=== PATIENT | female | born 1940 | race Caucasian/White ===

== ENCOUNTER → 2022-07-11 09:58 | Outpatient (CLI) | payer MEDICARE, OTHER, SELFPAY ==
[2022-07-11 11:20] LABS: COVID19 -Nasal RAPID Negative (Negative)
== END ==
PROVIDERS: PCP Physician Assistant; Referring Provider Orthopaedic Surgery Orthopaedic Surgery of the Spine; Visit Provider Orthopaedic Surgery Orthopaedic Surgery of the Spine
DX: Z20.822 Contact with and (suspected) exposure to COVID-19 (principal)
CPT/HCPCS: 87635; C9803

== ENCOUNTER 2022-07-14 10:35 | Inpatient (IN) | payer MEDICARE, OTHER, SELFPAY ==
[2022-07-07 08:40] VITALS: BMI 25.4
[2022-07-14] VITALS (17 sets, daily range): BP systolic 122–220; BP diastolic 53–104; PULSE 51–92; RESP 8–21; TEMP 36.1–36.6; O2SAT 91–100; BMI 25.9
--- NOTE | 2022-07-14 11:43 | SUR.PREOP ---
Pt states no pain today. States left sided buttock pain, into left thigh. Denies numbness and tingling.
[2022-07-14] MEDS: LACTATED RINGERS 1,000 ML 42 ML IV ×2 (11:46→17:09)
--- NOTE | 2022-07-14 14:57 | PM.OP.1 ---
Operative Date/Time/Diagnoses Date of procedure: 07/13/22 Time of procedure: 14:50 Pre-op diagnosis: 1. L5-S1 facet cyst 2. L5-S1 spinal stenosis with radiculopathy
--- NOTE | 2022-07-14 14:58 | PM.PREOP ---
Pre-operative Note COVID-19 COVID-19 status: Negative Result date/Date tested (Pos, Neg/Pending): 07/13/22 Criteria for continued procedure: Expected advancement of disease process, Possibility delay results in more complex future surgery or treatment, Increased loss of function, Continuing or worsening of significant or severe pain, Deterioration of the patient's condition or overall health and Delay expected to result in less-positive ultimate med/surg outcome Interval Note History & Physical reviewed/Exam performed by Physician: Yes Changes to H&P: No
[2022-07-14] MEDS: CEFAZOLIN 2 GM/100 ML PREMIX 100 ML IV (15:47)
--- NOTE | 2022-07-14 16:25 | SUR.OPER ---
Prone on spine table, head in foam head support, padded chest and pelvic supports, gel pad at knees, lower legs supported by pillows; nipples, genitalia and toes free of pressure, arms secured on foam padded arm boards at <90 degrees abduction. Tape over blanket at thigh secured to table.
[2022-07-14] MEDS: BUPIVACAINE 0.25% (PF) 30 ML, EPINEPHrine 0.3 MG INJ (16:32)
[2022-07-14] MEDS: BUPIVACAINE LIPOSOME 266 MG/20 ML VIAL INJ (16:33)
--- NOTE | 2022-07-14 17:31 | PM.OP.1 ---
Operative Date/Time/Diagnoses Date of procedure: 07/14/22 Time of procedure: 16:00 Pre-op diagnosis: 1. L5-S1 spinal stenosis 2. L5-S1 synovial cyst 3. L5-S1 radiculopathy Post-op diagnosis: same Procedure & Clinicians Procedure: 1. L5-S1 Postero-lateral and posterior interbody fusion 2. L5-S1 interbody cage placement. 3. L5-S1 decompressive laminectomy with bilateral facetecomies 4. L5-S1 Posterior non-segmental instrumentation 5. [place] of bone marrow from iliac crest 6. Utilization of microsurgical technique and operating microscope Same procedure as scheduled: Yes Indications: Patient has been having chronic back pain and worsening lumbar radiculopathy to her left lower extremity. Patient was found have a large synovial cyst to her L5-S1 facet. Patient failed multiple conservative management with worsening pain weakness and numbness in her lower extremity. Patient has been having difficulty performing activity of daily living. After discussing risks benefits of treatment options, patient elected proceed with surgery. Surgeon: Nina Charlton [employer] Foreign Language Teacher: Alison Armando Click Yes if Unassisted: No Anesthesia Type: General Operative Notes Closure Type: primary Specimen(s): none sent Prosthetic devices, grafts, tissues, transplants, or devices: Globus revolve screws, Rise cage Estimated Blood Loss (mL): 50 Blood products transfused: none Procedure in detail: Patient was seen in the preoperative area. Risks and benefits of the surgery was discussed with the patient. Informed consent was obtained from the patient and placed in the chart. Surgical site was marked. Patient was taken to the operative room. General anesthesia was administered. Prophylactic antibiotic was given to the patient less than 30 min before the incision was made. Patient was placed into a prone position on the [place] table. Patient's back was then prepped and draped in the sterile fashion. Time-out was performed at this time. Using AP and lateral C-arm imaging the interval between L5-S1 was identified and marked on patient's back. A 2 inch incision 2 in from midline was made on the left side first. The fascia was incised in line with skin incision. Globus MARS retractors was placed inside the incision and docked onto the L5 lamina. Using microsurgical technique and operating microscope, a L5 laminectomy and L5-S1 facetectomy was performed using a Kerrison rongeur. Patient was found have severe neural foraminal stenosis and required a total facetectomy for decompression which rendered L5-S1 grossly unstable and required a fusion procedure at the same time. The disc space at L5-S1 was identified. Patient was found have a large synovial cyst on the left side in the epidural space after the laminectomy and facetectomy was completed. The cyst wall was found to be intimately adhered to the dura. The cyst was then removed in its entirety and epidural space was fully decompressed after the laminectomy facetectomy a cyst removal was performed. And a total diskectomy was performed at L5-S1 level. The endplates were decorticated using a rasp and shaver. The total diskectomy and decortication was performed at L5-S1 level in order to to accomplish a L5-S1 fusion. The local bone from the laminectomy and facetectomy was saved for local bone grafting. After the total diskectomy and decortication was completed, Trifecta bone graft material was combined with local bone that was harvested earlier. At this time, a separate skin is incision was made over the iliac crest. A Jamshidi needle was inserted into the iliac crest through a separate skin incision. 5 cc of bone marrow aspiration was obtained through the separate skin incision using a Jamshidi needle from the iliac crest. The bone marrow aspiration was combined with local bone and the Trifecta bone grafting material. The bone grafting material was placed into the L5-S1 interbody space along with a expandable cage. The cage was expanded to its maximum height using the torque limiting screwdriver. At this time a mirror image incision was made on the right side. The fascia was incised in line with the skin incision. Globus MARS retractor was inserted and docked onto the L5-S1 posterolateral gutter. Using the power drill, posterior-lateral decortication was performed at L5-S1 level until bleeding cortical bone was identified. The remaining bone grafting material was placed into the L5-S1 posterior lateral gutter he order to accomplish posterolateral fusion at the L5-S1 level. Using the double C-arm technique, pedicle screws were placed into the L5-S1 pedicles bilaterally. This was done by placing the Jamshidi needle into the pedicles, then placing the guidewires over the Jamshidi needle, and finally placing the cannulated screws over the guidewires bilaterally. After the pedicle screws were placed, 2 titanium rods was locked into the heads of the pedicle screws using locking caps and torque limiting screwdriver. After all the hardware was placed, and confirmed with AP and lateral C-arm imaging, the wound was then irrigated with sterile normal saline and packed with Ray-Manjinder gauze for 3 min to accomplish hemostasis. After the gauze was removed the deep fascia was closed with #1 Vicryl suture. The subcutaneous layer was closed with 2-0 Vicryl. The skin was closed with skin lizzie. Patient tolerated the procedure well. There were no complications. Complications: none Post-operative Condition: stable Disposition: PACU Plan for aftercare: Admit to inpatient hospital
--- NOTE | 2022-07-14 17:32 | DI.RAD.S_ITS ---
PROCEDURE: XR LUMBAR SPINE 2-3V INDICATIONS: L5-S1 TLIF TECHNIQUE: 2 views of the lumbar spine were acquired. COMPARISON: None. FINDINGS: Intraoperative fluoroscopic views demonstrate pedicular screw and bebeto fixation with interval discectomy and interbody fusion at L5-S1. IMPRESSION: Intraoperative fluoroscopic views as above. Dictated by: Valentino Dominguez M.D. on 07/14/2022 at 17:55 Approved by: Valentino Dominguez M.D. on 07/14/2022 at 17:55
[2022-07-14] MEDS: fentaNYL 100 MCG/2 ML INJ IV (18:18)
[2022-07-14] MEDS: OXYCODONE IR 5 MG TABLET PO ×2 (18:21→19:59)
[2022-07-14] MEDS: SODIUM CHLORIDE 0.9% 1,000 ML 100 ML IV (19:25)
[2022-07-14] MEDS: ONDANSETRON 4 MG/2 ML INJ IV (19:56)
[2022-07-14] MEDS: ACETAMINOPHEN 325 MG TABLET 650 MG PO (19:59)
[2022-07-14] MEDS: SENNOSIDES 8.6 MG TABLET 17.2 MG PO (20:04)
[2022-07-14] MEDS: DOCUSATE 100 MG CAPSULE PO (20:04)
[2022-07-15] MEDS: OXYCODONE IR 5 MG TABLET PO
[2022-07-15] MEDS: CEFAZOLIN VIAL 1 GM in SODIUM CHLORIDE 0.9% 100 ML IV ×2 (00:01→08:10)
[2022-07-15] MEDS: hydrOXYzine pamoate 25 MG CAPSULE PO (00:43)
[2022-07-15 02:00] VITALS: BP 159/73; PULSE 73; RESP 16; TEMP 35.8; O2SAT 95
[2022-07-15] MEDS: ONDANSETRON 4 MG/2 ML INJ IV (04:40)
[2022-07-15] MEDS: SODIUM CHLORIDE 0.9% 1,000 ML 100 ML IV (04:50)
[2022-07-15 08:48] VITALS: BP 109/76; PULSE 66; RESP 16; TEMP 36.5; O2SAT 96
[2022-07-15] MEDS: DOCUSATE 100 MG CAPSULE PO (09:46)
--- NOTE | 2022-07-15 10:54 | PT.IIE ---
Current Diagnoses Spinal stenosis, lumbosacral region (07/14/22) Other bursal cyst, other site (07/14/22) Surgery Performed Operation Date: 07/14/22 12:45 Actual Procedures p L5-S1 TLIF wGloria mcgraw - Nina Charlton MD Surgical History (Last Reviewed 07/15/22 @ 11:43 by Alison Armando PA-C) History of hysterectomy History of prosthetic unicompartmental arthroplasty of right knee (~2014) Hx of colonoscopy with polypectomy (~03/2020) Hx of tonsillectomy Medical History (Last Reviewed 07/15/22 @ 11:43 by Alison Armando PA-C) Asthma COVID-19 virus infection (02/2022) Elevated cholesterol Hearing impaired Physical Therapy Inpatient Evaluation/Re-Eval M1 PT/OT-IP Prior Functional Status Start: 07/15/22 11:24 Freq: NEEDED Status: Active Protocol: Document 07/15/22 10:54 DLM (Rec: 07/15/22 11:45 DLM [id number]) Medical Review Prior Functional Status Medical History Reviewed Yes Diet/Fluid Consistency Regular Communication WFL, glasses and hearing aides Mobility and Gait ambulates independently with 4WW Activities of Daily Living and IADL's Independent with basice ADL's, sits on 4WW at the sink, goes to the dining room for meals, has staff assist for cleaning Prior Functional Level (Other details) Before her back injury she was working out on the exercise equipment She lives in an independent apt at [facility] . Social History Household Members none Living Arrangements [facility] Facility Number of Floors (Floors) One Floor Number of Stairs To Enter/Railing? none, takes elevator in building to dining room Home Environment High Toilet,Walk in Shower Home Equipment Front Wheel Walker,Four Wheel Walker,Shower Seat without Backrest,Hand Held Shower,Lift Recliner,Grab Bars Near Toilet,Grab Bars In Shower Employment Status Retired Additional Social History Comment she plans on staff and friends to help at discharge M2 PT-IP Current Condition Start: 07/15/22 11:24 Freq: NEEDED Status: Active Protocol: Document 07/15/22 10:54 DLM (Rec: 07/15/22 11:45 DLM [id number]) Physical Therapy Current Condition Current Condition Evaluation Date 07/15/22 Treatment Diagnosis L5-S1 TLIF, impaired gait and mobility Onset Date 07/14/22 M3 PT-IP Subjective Start: 07/15/22 11:24 Freq: NEEDED Status: Active Protocol: Document 07/15/22 10:54 DLM (Rec: 07/15/22 11:45 DLM [id number]) Subjective Physical Therapy Visit Type Type Initial Evaluation Visit Start Time 10:20 Visit Stop Time 10:54 Total Visit Minutes 34 Number of LACQUERER Visits 0 Physical Therapy Visit Comments Patient Comments She reports feeling very sleepy today Patient Goals discharge back to her Apt Therapy Pain Assessment Pain When Pain Assessed During Mobility Pain Present Pain Present Pain Reported Location Back Intensity 4 Scale Used Numeric (0 - 10) Description Aching,Tender,With Movement Pain Management Techniques Re-positioning,Timing of Activity with Medications M4 PT-IP Mobility and Gait Start: 07/15/22 11:24 Freq: NEEDED Status: Active Protocol: Document 07/15/22 10:54 DLM (Rec: 07/15/22 11:45 DLM [id number]) PT-Bed Mobility Assessment Supine to Sit Supine to Sit Standby Assistance,Bedrails Sit to Supine Sit to Supine Standby Assistance,Bedrails Scooting Scooting to Edge of Bed Standby Assistance PT-Transfer Assessment Sit to and From Stand Sit to and from Stand Standby Assistance,Use of Upper Extremities Equipment Transfer Assistive Device Gait Belt,Front Wheeled Walker Transfers Transfer Destination Bed,Bedside Commode Transfer Technique Stand Step Pivot Transfer Ability Level of Assist Standby Assistance,Use of Upper Extremities Comments Mobility Comments Pt up to bedside commode to urinate, pt incontinent of small amount of urine when she coughed getting to the commode, a depends placed on pt after toileting to manage incontinence issues Gait Assessment Gait Gait Assistance Required: Standby Assistance Distance (Feet) 25 Assistive Devices Assistive Device Gait Belt,Front Wheeled Walker ,4 Wheeled Walker Gait Deviations General Gait Pattern Decreased Stride Length Factors Limiting Gait Function Factors Limiting Gait Function Decreased Activity Tolerance, Limited Range of Motion,Pain, Poor Balance Comments Gait Comments Trials of gait performed with FWW and then with 4WW, pt demonstrates safe use of 4WW and prefers to use it since it is her baseline device. Pt returned to bed after activity this visit due to feeling very sleepy. Stair Climbing Assessment Comments Stair Climbing Comments no stairs at her home PT-Balance Assessment Sitting Balance and Reactions Static Sitting Balance Ability Good Dynamic Sitting Balance Ability Good Standing Balance and Reactions Static Standing Balance Ability Good Dynamic Standing Balance Ability Good Device Used FWW/4WW M5 PT-IP Objective Assessments Start: 07/15/22 11:24 Freq: NEEDED Status: Active Protocol: Document 07/15/22 10:54 DLM (Rec: 07/15/22 11:45 DLM [id number]) Orientation Orientation/Cognition Level of Alertness Alert Orientation Name,Age,Birthday,Month,Date, Year,Day of Week,Place, Situation Language Function Ability Hard of Hearing Safety Awareness Understands Safety Issues Memory Description No Deficits Noted Gross Range of Motion Upper Extremity ROM Assessment Within Functional Limits Lower Extremity ROM Assessment Within Functional Limits Strength Upper Extremity Strength Assessment Within Functional Limits Lower Extremity Strength Assessment Within Functional Limits Comments Strength Comments pain limits core strength functionaly post-op TLIF Coordination Assessment Gross Coordination Gross Coordination WNL Sensation Assessment Sensation Gross Sensation WNL Muscle Tone Muscle Tone WNL Yes M6 PT-IP Treatment Start: 07/15/22 11:24 Freq: NEEDED Status: Active Protocol: Document 07/15/22 10:54 DLM (Rec: 07/15/22 11:45 DLM [id number]) Physical Therapy Treatment Education Education Provided Precautions,Post-Op Packet, Safety M7 PT-IP Assessment and Plan Start: 07/15/22 11:24 Freq: NEEDED Status: Active Protocol: Document 07/15/22 10:54 DLM (Rec: 07/15/22 11:45 DLM [id number]) PT Summary Assessment and Plan Potential Rehabilitation Potential Excellent Status of Condition at Evaluation Evolving Summary Impairments Pain,ROM,Strength,Balance,Bed Mobility,Transfers,Gait, Activity Tolerance Assessment Summary Pat is alert and resting in bed at the start of this visit . She has been up to the bedside commode with nursing. Educated her in her spine precautions. She likes to sleep and lay on her right side so she does minimal rolling. She is slow with her mobility but shows good safety awareness. Gait training performed with the FWW and then the 4WW. She appears safe to advance back to her 4WW at his time. Pt does not feel ready to go home at this time due to being too sleepy. Will see her again this afternoon to progress gait with possible discharge home later today. Goals Bed Mobility Goal Independent Transfer Goal Independent,Front Wheeled Walker Gait Goal Independent,Front Wheel Walker Gait Distance 150 feet Other Goals demonstrate good awareness of her spine precautions during mobility Days to Meet Goals 2 Frequency of Treatment Frequency Of Treatment Twice a Day Treatment Plan Physical Therapy Treatment Plan Bed Mobility Training,Transfer Training,Gait Training, Therapeutic Exercise,Balance Retraining,Post Op Education, Discharge Planning,Hot or Cold Pack,Neuromuscular Re-ed Other Recommendations and Next Treatment gait TR with her 4WW which is Focus in her room Precautions Lumbar Precautions Log Roll,No Twisting,Limit Bending,Lifting Restriction of 10 lbs,Gait Belt above Incisional Area Recommendations To Nursing Amount of Assist Needed Standby Assistance Discharge Recommendations PT Discharge Recommendations Home with Assistance,Home Health Other Discharge Recommendations assist of staff and her friends Transportation Needs at Discharge Private Vehicle
[2022-07-15 11:37] LABS: Hematocrit 35.5 % (36-46); Hemoglobin 12.1 g/dL (12.0-16.0)
--- NOTE | 2022-07-15 11:41 | P.DS_ITS ---
History of Present Illness History of Present Illness Date Patient Seen: 07/15/22 Time Patient Seen: 09:45 Chief complaint: TLIF Narrative: Patient's main complaint today this morning is that she is tired after physical therapy. She notes her back pain is [id number]. She denies any new numbness or tingling down her legs. Overall she is feeling well and would like to be discharged home to [facility] today. She was experiencing some nausea and vomiting yesterday. Discharge Providers Provider Date of admission: 07/14/22 10:35 Discharge Date: 07/15/22 Primary care physician: Constance Mckeon PA-C Consults: 07/14/22 18:53 Consult to Occupational Therapy Evaluate & Treat Comment: Physician Instructions: Evaluate and treat Consult to Physical Therapy Evaluate & Treat Comment: Physician Instructions: Evaluate and Treat Discharge provider: Alison Armando PA-C Summary Hospital Course Discharge Diagnosis: 1. L5-S1 spinal stenosis 2. L5-S1 synovial cyst 3. L5-S1 radiculopathy Hospital Course: Operative Date/Time/Diagnoses Date of procedure: 07/14/22 Time of procedure: 16:00 Procedure & Clinicians Procedure: 1. L5-S1 Postero-lateral and posterior interbody fusion 2. L5-S1 interbody cage placement. 3. L5-S1 decompressive laminectomy with bilateral facetecomies 4. L5-S1 Posterior non-segmental instrumentation 5. [place] of bone marrow from iliac crest 6. Utilization of microsurgical technique and operating microscope Same procedure as scheduled: Yes Indications: Patient has been having chronic back pain and worsening lumbar radiculopathy to her left lower extremity.? Patient was found have a large synovial cyst to her L5-S1 facet. Patient failed multiple conservative management with worsening pain weakness and numbness in her lower extremity.? Patient has been having difficulty performing activity of daily living.? After discussing risks benefits of treatment options, patient elected proceed with surgery. Surgeon: Nina Charlton Recreational Specialist: Alison Armando Click Yes if Unassisted: No Anesthesia Type: General Operative Notes Closure Type: primary Specimen(s): none sent Prosthetic devices, grafts, tissues, transplants, or devices: Globus revolve screws, Rise cage Estimated Blood Loss (mL): 50 Blood products transfused: none Status at Discharge Cognitive/behavioral status at discharge: at baseline, oriented Functional status at discharge: uses cane/walker Overall status at discharge: patient is progressing back to baseline Exam Vital Signs (past 8 hours): - 07/15/22 08:48 Temperature 97.7 F Pulse Rate 66 Respiratory Rate 16 Blood Pressure 109/76 Pulse Oximetry 96 Oxygen Flow Rate 0 Oxygen Delivery Method Room Air Oxygen Flow Rate 0 Narrative Exam Narrative: Pleasant 81-year-old female, initially up with physical therapy and now resting comfortably in bed, no acute distress. Low back incision is clean, dry, intact. Bilateral lower extremity: Motor functions are grossly intact, sensation is grossly intact to light touch, calves are soft and nontender palpation. Objective Labs Result Diagrams: 07/15/22 11:18 Labs: Laboratory Results - last 24 hr 07/15/22 11:18 Hgb 12.1 Hct 35.5 L PFSH Medical History Asthma COVID-19 virus infection (02/2022) Elevated cholesterol Hearing impaired Surgical History History of hysterectomy History of prosthetic unicompartmental arthroplasty of right knee (~2014) Hx of colonoscopy with polypectomy (~03/2020) Hx of tonsillectomy Social History household members: none Smoking Status: Never smoker alcohol intake: former Discharge Assessment & Plan Assessment and Plan Assessment: -stable status post L5-S1 TLIF Plan of Treatment: -mobilize with PT/OT. No bending, lifting, twisting x6 weeks. Weightbearing as tolerated with front wheel walker versus a cane. -continue with multimodal pain management. Zofran as needed for nausea. -DC home to [facility] today versus tomorrow, depending on physical therapy and pain management Discharge Plan Discharge Plan Patient Disposition: Home Discharge orders & Medications Prescriptions: New acetaminophen 500 mg capsule 500 mg PO Q4H MDD Max 3000 mg per day PRN (Reason: Pain, Mild (1-3)) Qty: 90 0RF docusate sodium 100 mg Capsule 100 mg PO BID PRN (Reason: constipation) Qty: 20 0RF hydroxyzine pamoate 25 mg Capsule 25 mg PO Q4HR PRN (Reason: Muscle spasms/pain/nausea) Qty: 30 0RF oxycodone 5 mg Tablet 5 mg PO Q3HR PRN (Reason: Pain, Moderate (4-6)) Qty: 42 0RF ondansetron 4 mg tablet,disintegrating 4 mg PO Q6H PRN (Reason: nausea and vomiting) Qty: 10 0RF Continued alendronate [Fosamax] 70 mg Tablet 70 mg PO QWEEK Label Comments: Every Thursday Follow up/Referrals: Constance Mckeon PA-C [Primary Care Provider] - Nina Charlton MD [Physician] - (10-14 days for postoperative visit) Diet/Activity/Treatments Diet: Diet as Tolerated Other treatments: Medications: -OTC Tylenol 500 mg 1 tablet every 4 hours as needed for pain/fever. Max 6 tablets per day. -Oxycodone 5 mg take 1-2 tablets every 4 hours as needed for moderate-severe pain (narcotic pain medication). -As needed medications: -Ducolax and /or MiraLax as needed for constipation from narcotic pain medications. -Pepcid AC as needed for stomach upset. -Vistaril (hydroxyine) 25mg 1 tab every 4 hours as needed for spasms/pain/nausea. Dressing/Wound care: -Keep dressing in place until postoperative follow-up office visit. -Okay to shower. Keep wound out of direct water stream. Can use PressNSeal plastic wrap to protect from shower stream. No soaking or submerging until all the scabs fall off (approximately 6 weeks). -Please call the office if dressing becomes wet, soiled, or saturated. Activities: -Limit bending, lifting, twisting x6 weeks. No deep bending (more than 90 degrees) or twisting at the waist. No lifting > 20 pounds. -Walk frequently. -Weight-bearing as tolerated. Use front wheeled walker, and progress to cane when safe. -Continue with home exercises as directed by your physical therapist. -Ice your incision as needed for pain/inflammation/swelling. Protect your skin with a folded pillowcase. -Incentive Spirometer (breathing device from hospital): 5-10xs every hour while awake for the first 1-2 weeks. Follow-up: -Follow-up with your surgeon or PA in the office in 10-14 days after surgery. -Follow-up with your surgeon 6 weeks postoperatively. Call the office if you have chest pain, shortness of breath, significant swelling that will not resolve with elevating, fever over 101?, significantly worsening pain, or are concerned you might need to go to the Emergency Room. [facility]: [phone] Skin/Wound/Dressing Care Report to your healthcare provider any signs of infection, such as:: chills, fever, night sweats, unusual drainage and unusual redness Visit Report/Discharge Packet Instructions: DI for Prescription Opioid Use, DI for Transforaminal Lumbar Interbody Fusion Stand Alone Forms: Surgery Discharge Discharge Data Primary Care Provider: Constance Mckeon VTE Deep Vein Thrombosis/Pulmonary Embolism Present on Admission: No
[2022-07-15 12:00] VITALS: BP 139/54; PULSE 71; RESP 16; TEMP 36.7; O2SAT 95
--- NOTE | 2022-07-15 12:26 | CM.IDA ---
DCP Assessment Note Patient is 81 y/o female who presents to after scheduled TLIF surgery by Dr. Charlton. Patient's PCP is Rosalinda Mckeon, Patient has Medicare and [employer] insurance. Patient has hx of Asthma, elevated cholesterol and hearing impairment with hearing aids. Patient resides at [facility] in [facility] and endorses supports from staff and friends. FRONT CLERK enters room to meet with patient. Patient presents as A/Ox3, patient endorses independence at baseline with ADLs and states that she normally drives. OT currently meeting with patient. PT recommends home with assistance or home with home health. Patient endorses preference for home with HH with PT, OT and HH aide, FRONT CLERK provides medicare choice list, patient denies preference. [facility] is this weeks HH agency per rotation. FRONT CLERK calls El at [facility], it is reported that patient can be seen by HH as soon as Thursday. FRONT CLERK has F2F scanned in and El can review EMR for clinicals and HH order. FRONT CLERK to provide patient with brochure. Patient has d/c orders for d/c today. Plan: Patient to d/c to home today ([facility] facility) today with HH referral for [facility]. [facility] Discharge Planning/Care Management CM Discharge Assessment Start: 07/15/22 12:22 Freq: Status: Active Protocol: Document 07/15/22 12:22 LN (Rec: 07/15/22 12:26 LN [id number]) Discharge Planning Assessment Assigned Plastic Extruding Machine Operator [facility] Advance Directives? Yes Advance Directives on File No History Provided By Patient,Medical Record Has Patient been admitted in last 30 No days? Prior Living Arrangements [facility] Facility Household Members none Type of transporation used prior to Drives own vehicle admit Comment At baseline, patient unable to drive during surgery. Willing to Return to Facility? Yes: [facility] Independent with ADL's Yes: at baseline Is patient alert and oriented? Yes Needs Assistance With Bathing,Grooming Comment Patient will need assistance with bathing and grooming upon return to home. DME Already Rented / Owned FWW / Walker Comment patient has seated FWW with wheels Patient/Family Preference Home with Home Health Discharge Plan Home with Home Health Referrals Initiated Home Health If patient plan is home with home health Yes : Has signed face to face form been completed? Medicare Choice List Provided Yes SNF/HH Preference No preference, soonest that can see patient. [facility] is this weeks agency Please Provide Date Initial DC 07/15/22
--- NOTE | 2022-07-15 12:45 | OT.IP.EVAL ---
Current Diagnoses Spinal stenosis, lumbosacral region (07/14/22) Other bursal cyst, other site (07/14/22) Surgery Performed Operation Date: 07/14/22 12:45 Actual Procedures p L5-S1 TLIF lia Charlton MD Past Medical History (Last Reviewed 07/15/22 @ 11:43 by Alison Armando PA-C) Asthma COVID-19 virus infection (02/2022) Elevated cholesterol Hearing impaired Surgical History (Last Reviewed 07/15/22 @ 11:43 by Alison Armando PA-C) History of hysterectomy History of prosthetic unicompartmental arthroplasty of right knee (~2014) Hx of colonoscopy with polypectomy (~03/2020) Hx of tonsillectomy Occupational Therapy Inpatient Evaluation/Re-Eval M1 PT/OT-IP Prior Functional Status Start: 07/15/22 11:24 Freq: NEEDED Status: Active Protocol: Document 07/15/22 12:02 [facility] (Rec: 07/15/22 13:44 [facility] [id number]) Medical Review Prior Functional Status Medical History Reviewed Yes Diet/Fluid Consistency Regular Communication WFL, glasses and hearing aides Mobility and Gait ambulates independently with 4WW Activities of Daily Living and IADL's Independent with basic ADL's, sits on 4WW at the sink, goes to the dining room for meals, has staff assist for cleaning Prior Functional Level (Other details) Before her back injury she was working out on the exercise equipment She lives in an independent apt at [facility] . Social History Household Members none Living Arrangements Half-Way Facility Number of Floors (Floors) One Floor Number of Stairs To Enter/Railing? none, takes elevator in building to dining room Home Equipment Front Wheel Walker,Four Wheel Walker,Shower Seat without Backrest,Hand Held Shower,Lift Recliner,Grab Bars Near Toilet,Grab Bars In Shower Employment Status Retired Additional Social History Comment she plans on staff and friends to help at discharge M2 OT-IP Current Condition Start: 07/15/22 13:22 Freq: Status: Active Protocol: Document 07/15/22 12:02 [facility] (Rec: 07/15/22 13:44 [facility] [id number]) Occupational Therapy Current Condition Current Condition Evaluation Date 07/15/22 Treatment Diagnosis S/p L5-S1 TLIF Diagnosis Onset Date 07/14/22 Post Operative Precautions Lumbar Precautions Log Roll,No Twisting,Limit Bending,Lifting Restriction of 10 lbs,Gait Belt above Incisional Area M3 OT- IP Subjective and Pain Start: 07/15/22 13:22 Freq: Status: Active Protocol: Document 07/15/22 12:02 [facility] (Rec: 07/15/22 13:44 [facility] [id number]) OT- Subjective Occupational Therapy Visit Type Type Initial Evaluation Visit Start Time 12:02 Visit Stop Time 12:45 Total Visit Minutes 43 Occupational Therapy Visit Comments Patient Comments Pt states very tired but wanting to use the BSC and get dressed. Pt realizing that she will need more assist at home and nervous about going home. Patient/Caregiver Goals To go home OT Pain Assessment Pain When Pain Assessed At Rest Pain Present Pain Present Denied Pain M4 OT- IP ADL's Start: 07/15/22 13:22 Freq: Status: Active Protocol: Document 07/15/22 12:02 [facility] (Rec: 07/15/22 13:44 [facility] [id number]) OT PCK-Jign-Pnoinvi Comments OT Self-Feeding Comments Not at meal time. OT ADL-Grooming Comments OT Grooming Comments Not performed. OT ADL-Oral Care Comments Oral Care Comments Not performed. OT ADL-Dressing General Eval Lower Body Dressing Ability Maximum Assistance Comments OT Dressing Comments Pt not able to do brief or sock management as needing assist to help get items over her feet. Suggested pt get LB dressing equipment to assist which pt does not have. OT ADL-Toileting Comments OT Toileting Comments Pt having difficulty to reach in the back and would be beneficial to have assist for safety and completeness. OT ADL-Bathing Comments OT Bathing Comments Pt realizes will need assist and looking into getting a bath aid to assist . M5 OT- IP IADL's Start: 07/15/22 13:22 Freq: Status: Active Protocol: Document 07/15/22 12:02 [facility] (Rec: 07/15/22 13:44 [facility] [id number]) OT-Instrumental Activities of Daily Living Home Safety Awareness Awareness of Need for Assistance at Home Good Awareness Home Safety Comments Pt now realizing that she will need more assist at home especially for her ADl needs. Meal Preparation Meal Preparation Comments At this time it would be best if her meals were to be brought to her room. Pillowcase Maker Pillowcase Maker Comments Pt will need assist. M6 OT- IP Functional Cognition Start: 07/15/22 13:22 Freq: Status: Active Protocol: Document 07/15/22 12:02 [facility] (Rec: 07/15/22 13:44 [facility] [id number]) Cognitive Factors Limiting Selfcare Function Cognitive Ability Level of Alertness Alert Patient Orientation Name,Place,Situation Attention Span Ability Capable of Focused Attention, Capable of Sustained Attention Ability to Follow Commands Able to Follow One Step Commands Cognitive Comments Cognitive Assessment Comments Pt able to follow back precautions well but just very tired when OT came to see the pt. Pt needing reminders for the log rolling. OT- Vision and Hearing OT- Hearing Assessment OT- Hearing Assessment WFL M7 OT- IP Mobility and Balance Start: 07/15/22 13:22 Freq: Status: Active Protocol: Document 07/15/22 12:02 [facility] (Rec: 07/15/22 13:44 [facility] [id number]) OT- Bed Mobility Assessment Sit to Supine Sit to Supine Assist Minimal Assistance OT-Transfer Assessment Sit to and From Stand Sit to and from Stand Standby Assistance Transfers Transfer Ability Standby Assistance,Contact Guard Assistance Technique Transfer Destination Bed,Bedside Commode Devices Transfer Assistive Devices Gait Belt,4 Wheeled Walker Comments Mobility Comments Pt with increased time able to get from supine to sitting. SBA to stand to 4ww and transfer to BSC with CGA as a little unsteady on her feet. Pt not wanting to walk to the bathroom at this time. Pt will benefit from assist to get up and down to the bathroom at night for safety. Pt states also wears pull up briefs. OT- Balance Assessment Sitting Balance and Reactions Static Sitting Balance Ability Good Dynamic Sitting Balance Ability Fair Standing Balance and Reactions Static Standing Balance Ability Fair M8 OT- IP Objective Assessments Start: 07/15/22 13:22 Freq: Status: Active Protocol: Document 07/15/22 12:02 [facility] (Rec: 07/15/22 13:44 [facility] [id number]) OT-Muscle Tone Assessment Muscle Tone WNL Yes M9 OT- IP Assessment and Plan Start: 07/15/22 13:22 Freq: Status: Active Protocol: Document 07/15/22 12:02 [facility] (Rec: 07/15/22 13:44 [facility] [id number]) OT Summary Assessment and Plan Potential Rehabilitation Potential Good Analytic Complexity at Evaluation Low Summary OT Impairments Pain,Balance,Functional Mobility,Grooming,Dressing, Toileting,Bathing,Toilet Transfers,Shower Transfers, Activity Tolerance Progress Towards Goals Slow Progress due to Pain,Slow Progress due to Activity Tolerance Assessment Summary Pt low complexity and main barriers are pain, decreased activity tolerance and now needing assist for LB dressing needs, toileting, and bathing at this time. Pt considering trying to go to skilled rehab , however would be beneficial to have increased assist from her facility for bed mobility, dressing, toileting, and bathing needs at this time. Therefore suggest, pt to go home with increased assist and home health. Pt will also benefit from getting a BSC, sulky driver, sock aid, long handled shoe horn and toilet paper aid. Goals Grooming Goal Independent Dressing Goal Independent Toileting Goal Independent Bathing Goal Independent Toilet Transfer Goal Independent Shower Transfer Goal Independent Days to Meet Goals 10 Frequency of Treatment Frequency Of Treatment Once a Day Treatment Plan OT Treatment Plan ADL Training,Functional Mobility,Patient/Family Education,Discharge Planning Other Treatment Recommendations and Next shower Treatment Focus Discharge Recommendations OT Discharge Recommendations Home with Assistance Transportation Needs at Discharge Private Vehicle,Wheelchair/ Cabulance
--- NOTE | 2022-07-15 16:00 | CM.DPC ---
DCP Note continued LINING FINISHER submits referral to [facility] and provides patient with [facility] brochure. OT discusses concern for patient's ability to transfer and get to commode. LINING FINISHER and DCP Leonor RN enter room to discuss option of increasing to [facility] services at longterm facility vs. SNF private pay. LINING FINISHER calls [facility] and discuss increasing patient's services to [facility], LINING FINISHER faxes PT, OT and d/c summary notes for there review. Patient endorses concern for cost of SNF private pay and endorses preference to return to home at [facility]. Plan: patient d/c'd to home at [facility] with increase in [facility] services and [facility] services to start as soon as Thursday, friend to transport patient via POV. [facility]
== END 2022-07-15 15:03 | disposition home or self-care (01) | DRG 455 ==
PROVIDERS: Physician Assistant; Admitting Provider Orthopaedic Surgery Orthopaedic Surgery of the Spine; PCP Physician Assistant; Referring Provider Orthopaedic Surgery Orthopaedic Surgery of the Spine; Visit Provider Orthopaedic Surgery Orthopaedic Surgery of the Spine
PROC: 0SG00AJ Fusion of Lumbar Vertebral Joint with Interbody Fusion Device, Posterior Approach, Anterior Column, Open Approach (ICD-10-PCS; principal; 2022-07-14 12:45)
DX: M48.07 Spinal stenosis, lumbosacral region (principal); M71.38 Other bursal cyst, other site; M54.17 Radiculopathy, lumbosacral region; Z20.822 Contact with and (suspected) exposure to COVID-19
CPT/HCPCS: 36415; 72100; 76000; 85014; 85018; 87635; 97162; 97165; 97535; C9803; C1713; C9290; J0171; J0690; J1170; J2405; J2704; J3010